=== PATIENT | male | born 1965 | race Hispanic/Latino ===

== ENCOUNTER 2022-03-23 05:42 | Inpatient (IN) | payer BC, SELFPAY ==
[2022-03-23] VITALS (16 sets, daily range): BP systolic 108–152; BP diastolic 76–99; PULSE 65–94; RESP 16–20; TEMP 36.4–36.8; O2SAT 78–100; BMI 32.8
[2022-03-23] MEDS: Lactated Ringers 1,000 ML 15 ML IV (06:05)
[2022-03-23 06:20] LABS: INR Fingerstick 0.9
[2022-03-23] MEDS: Gabapentin 600 MG Tablet PO (06:47)
--- NOTE | 2022-03-23 07:11 | DS.PCM_ITS ---
Providers Date of Admission: 03/23/22 Primary Care Physician: Dr. Sushil Mackey DO Reason For Visit: LUMBER 4-5 POSTERIOR LUMBAR INTERBODY FUSION Diagnosis Discharge Diagnosis (1) Lumbar stenosis: Status: Acute Code(s): M48.061 - Spinal stenosis, lumbar region without neurogenic claudication Medications at Discharge Home Medications gabapentin 300 mg tablet 300 mg PO BID PAIN 03/17/22 hydrocodone-acetaminophen 5-325mg 5mg-325mg 1 tab PO Q6H PRN pain 7 days #28 tabs 03/23/22 Hospital Course Operations - (L4-5 posterior lumbar interbody fusion, decompression, posterior spinal fusion with instrumentation, use of allograft) Summary of Care Provided Minutes Spent on Discharge: 15 Hospital Course: The patient is a 56-year-old male who underwent L4-5 posterior lumbar interbody fusion, decompression, posterior spinal fusion with instrumentation, use of allograft on 03/23/2022. He was subsequently admitted. The hospitalist was consulted for medical management. The patient progressed well. His pain was controlled and he was mobilizing well. No significant medical issues were reported. His drain was pulled on postoperative day 1. He was subsequently discharged home on 03/24/2022 to follow-up with Dr. Ambrosio in 3 weeks. Physical Exam Narrative The patient was seen and examined postoperative day 1. He is resting comfortably. His pain is controlled. He denies any acute numbness tingling weakness or changes in bowel or bladder function. Drain was pulled today Const alert, oriented x3 and no apparent distress General Appearance: cooperative, comfortable and well kempt Orientation / Consciousness: awake, oriented to person, oriented to place and oriented to time HEENT normocephalic and head/scalp atraumatic Eyes EOMs intact bilaterally and conjunctivae normal Neck full ROM General: normal visual inspection Chest inspection of chest normal and palpation of chest normal Resp normal respiratory effort and normal air movement Effort and Inspection: able to speak in complete sentences Cardio regular rate and peripheral pulses 2+ throughout GI soft to palpation, non-tender and non-distended Back/Spine Back/Spine Narrative: Dressing clean dry and intact. Incision well approximated with interrupted sutures in place. No tenderness erythema drainage or fluctuance Cervical Spine: cervical ROM normal Thoracic Spine / Upper Back: normal to inspection Lumbar Spine / Lower Back: normal to inspection Extremity normal to inspection, full ROM, normal capillary refill, no clubbing, cyanosis or edema and no calf tenderness Skin no rashes or lesions noted General Skin Exam: no breakdown Neuro oriented x3, CN's II-XII intact bilaterally, moves all extremities, no focal motor deficits, no sensory deficits noted and deep tendon reflexes 2+ bilaterally Motor Exam: strength 5/5 throughout and muscle tone normal throughout Weight / BMI Weight Weight: 229 lb 4.492 oz Body Mass Index (BMI) 32.8 ABG / Lab / Microbiology Data Result Diagrams: 03/24/22 06:18 03/24/22 06:18 Laboratory: Laboratory Results - last 24 hr 03/23/22 06:16: POC PT 12.0, INR 0.9 D/C Instructions Discharge Diet: No restrictions Additional Activity Instructions: No repetitive bending twisting or lifting greater than 5 pounds. Back brace on at all times. Okay to remove brace to sleep Call your doctor if your incision/area has: Continuous Slow Oozing, Sudden Increased Bleeding, Increased Pain/ Swelling, Increased Redness, Foul Smelling Discharge and Swelling at the incision site Call your doctor if you observe: Fever of 101 or Higher, Coldness, Increased Pain, Numbness or Tingling, Change in Color, Inability to urinate, Inability to have a bowel movement, Using more than 1 pad per hour, Shortness of breath, Dizziness, Fainting spells, Swelling in the ankles, Chest pain, Prolonged hiccupping, Increased palpitations (irregular heartbeat), Calf discomfort and Uncontrolled pain Cleanse incision/area with: Do not get Incision Wet and Keep Dressing Clean & Dry Additional Dressing/Incision Instructions: Change dressing daily with iodine to incision, gauze and tape. Bernice dressing to shower Please Follow Up With: Dick Ambrosio DO When: 3 weeks Meaningful Use Info Meaningful Use Diagnoses (Choose all that apply): None applicable Discharge Plan Admission Admit Date/Time: 03/23/22 05:42 Attending Provider: Dick Ambrosio Primary Care Provider: Sushil Mackey Consulting Providers: Carlito Pham Instructions Additional Instructions / Restrictions: 1. During your procedure, you received sedation through your IV. Please follow these instructions for the next 24 hours: Do not drive a motor vehicle, do not drink any alcoholic beverages, and do not sign any legal documents or make personal or business decisions. A responsible adult should stay with you at least 6 hours after the procedure. 2. Keep your surgical site/incision clean and the dressing dry and intact. Change dressing daily with iodine, gauze and tape. You may use an ice pack at the surgical site to reduce any swelling or discomfort. 3. Monitor the incision site for any signs or symptoms of infection. Watch for redness, excessive swelling or drainage, or continued pain at the incision site after 3 days. Contact your physician immediately for a fever, chills or a temperature of 101.5? F or greater. 4. Take your medication exactly as prescribed by your physician. Do not attempt to wean yourself off any of your medications even though your pain is improving. This process needs to be carefully monitored by your doctor. Take any antibiotics prescribed exactly as directed and until they are gone. 5. Avoid stretching, bending, pulling, twisting or any sudden movements. Do not bend or twist at the waist. Wear your back brace at all times while out of bed. Okay to remove brace to sleep 6. No lifting greater than 5 pounds. 7. Do not operate a motor vehicle, equipment or a power tool while taking pain medication 8. Do not have any manipulation done by a chiropractor or any other physician without first consulting with the surgeon 9. Please contact our office if you are even scheduled for a CT scan or an MRI. 10. Please call us if you have any questions, problems or concerns. Discharge Orders/Prescriptions Prescriptions: New hydrocodone-acetaminophen 5-325 mg tablet 1 tab PO Q6H PRN (Reason: pain) 7 Days Qty: 28 0RF Continued gabapentin 300 mg Tablet 300 mg PO BID Other Ambulatory Orders: Partial Thromboplast Time (Routine) Timeframe: [id number] Facility: [facility] - Location: Laboratory Ordered By: Dr. Dick Ambrosio Prothrombin Time w/INR (Routine) Timeframe: [id number] Facility: [facility] - Location: Laboratory Ordered By: Dr. Dick Ambrosio Referrals / Follow Up: Sushil Mackey DO [Primary Care Provider] - Dick Ambrosio DO [STAFF PHYSICIAN] - Disposition Disposition (needs filled in before D/C Order can be placed): Home, Self Care
--- NOTE | 2022-03-23 07:11 | OP.PCM_ITS ---
Problems Associated Problem List Diagnoses (1) Lumbar stenosis: Report of Operation Date of Procedure: 03/23/22 Pre-Operative Diagnosis: 1. Lumbar stenosis, L4-5 with spondylosis 2. Lumbar degenerative disc disease, L4-5 Post-Operative Diagnosis: 1. Lumbar stenosis, L4-5 with spondylosis 2. Lumbar degenerative disc disease, L4-5 Surgery/Procedure Performed:: 1. L4-5 posterior lumbar interbody fusion 2. Insertion of intervertebral biomechanical device x1 3. Structural allograft for spinal fusion 4. L4 bilateral laminectomies, foraminotomies, facetectomies, decompression of bilateral nerve roots 5. L4-5 posterior lateral fusion 6. Pedicle screw fixation 7. Local autograft for spinal fusion 8. Neuro monitoring bilateral upper and bilateral lower extremities Description of Surgical Findings:: The patient is a 56-year-old male with intractable back and leg pain. Image studies confirm the above diagnoses. He has failed conservative treatment to include medication, physical therapy and injections. The patient opted for operative intervention understanding the risk to include but not limited to infection, bleeding, damage to nerves arteries and veins, possibility of spinal fluid leak, nonunion, hardware failure, continued pain, need for further surgery, deep vein thrombosis, pulmonary embolism, heart attack, risk of stroke or . The patient was identified in the preoperative holding area. There he received preoperative IV antibiotics, Ancef, and was then transferred to the operative suite. Once in the operative suite after general endotracheal anesthesia was established, the patient was transferred to the [place] operating table in the prone position. All bony prominences were padded accordingly. The lumbar spine was prepped and draped in a standard surgical fashion. Bear hugger's were not turned on until the drapes were placed and sealed with Ioban. A midline incision was made and taken down to the level of the lumbodorsal fascia. The fascia was divided and subperiosteal dissection was taken down to the level of the transverse processes of L4 and L5 bilaterally. Deep retractors were placed. A bone scalpel was then used to make cuts in the lamina of L4. A series of rongeurs and Kerrisons was used removing the spinous process and lamina at L4. Then facetectomies of greater than 50% were performed as well as foraminotomies, decompressing the bilateral nerve roots. Given the severity of the stenosis I needed to perform wide bilateral laminectomies and near complete facetectomies in order to decompress the neural elements therefore creating instability necessitating the fusion. The dura and nerve roots were identified and retracted medially. A 15 blade scalpel was used to make an annulotomy at L4-5 on the left. An endplate elevator, curettes and pituitaries were utilized to remove disc material. The endplates were then prepared with a rasp. An appropriate sized intervertebral peek cage device measuring 7 mm was packed with morselized cancellous allograft and impacted into position completing the posterior lumbar interbody fusion at the L4-5 level. I then proceeded with pedicle screw fixation. Starting points were found at the junction of the superior articular process and transverse process of L4 and L5 bilaterally. A power bur was used for the starting points. Pedicle probes were placed bila terally and then 6.5 x 50 mm screws were placed bilaterally at L4 and 6.5 x 50 mm screws were placed bilaterally at L5. The screws were tested with intraoperative neurophysiologic monitoring and tested within normal limits. Connecting rods were then applied and secured with set screws. I then proceeded with the posterior lateral fusion. This was accomplished by decorticating the transverse processes bilaterally at L4 and L5. This decorticated bone was then bridged with local autograft from the decompression as well as morselized cancellous allograft therefore completing the posterior lateral fusion at L4-5. The incision was then thoroughly irrigated. Tisseel was placed over the dura as a hemostatic agent. A deep drain was placed. The fascia was closed with #1 Vicryl, subcutaneous with 2-0 Vicryl and skin with 2-0 nylon. A sterile dressing was applied with 4 x 4's ABD and tape. Sponge instrument and needle counts were correct at the end of the case. The patient was extubated and taken to the PACU without incident. Buffy Byrd PA-C was present during the entire duration of the case and necessary for critical parts of the case including retraction and closure. Surgeon: Dick Ambrosio quality management nurse: Buffy Byrd Type of Anesthesia: General Drains: Hemovac Estimated Blood Loss (mL): 400 cc Fluids Replaced: 1500 cc Grafts/Implants Used: Unified spine, Talos, Vitae OS, DBM Complications None Admit VTE Documentation VTE Present on Admission: No
--- NOTE | 2022-03-23 07:11 | PCM.PN.ORT ---
Subjective Subjective The patient was seen and examined postoperatively in the PACU. He is lying in bed resting comfortably. His pain is controlled. He denies any complaints including numbness tingling weakness. Objective Data Objective Data Vital Signs: Vital Signs Temp Pulse Resp BP Pulse Ox 97.6 F L 65 16 123/89 H 100 03/23/22 06:38 03/23/22 06:38 03/23/22 06:38 03/23/22 06:38 03/23/22 06:38 Oxygen Delivery Method Room Air Weight: 229 lb 4.492 oz Body Mass Index (BMI) 32.8 Lab / Micro Data Labs: Laboratory Results - last 24 hr 03/23/22 06:16: POC PT 12.0, INR 0.9 Physical Exam Const alert, oriented x3 and no apparent distress General Appearance: cooperative and comfortable Orientation / Consciousness: awake, oriented to person and oriented to place HEENT normocephalic and head/scalp atraumatic Eyes EOMs intact bilaterally and conjunctivae normal Neck full ROM General: normal visual inspection Chest inspection of chest normal and palpation of chest normal Resp normal respiratory effort and normal air movement Cardio regular rate, regular rhythm and peripheral pulses 2+ throughout GI soft to palpation, non-tender and non-distended Back/Spine Back/Spine Narrative: Dressing clean dry and intact. Drain in place and functioning with small amount of serosanguineous fluid present in the drain Cervical Spine: cervical ROM normal Thoracic Spine / Upper Back: normal to inspection Lumbar Spine / Lower Back: normal to inspection Extremity normal to inspection, full ROM, normal capillary refill, no clubbing, cyanosis or edema and no calf tenderness Skin no rashes or lesions noted General Skin Exam: no breakdown Neuro oriented x3, CN's II-XII intact bilaterally, moves all extremities, no focal motor deficits, no sensory deficits noted and deep tendon reflexes 2+ bilaterally Motor Exam: strength 5/5 throughout and muscle tone normal throughout Assessment & Plan Assessment/Plan (1) Lumbar stenosis: PLAN: Okay to admit to floor See orders Pain control and mobilization as tolerated. Back brace on at all times Continue antibiotics while drain in place Discharge planning, likely home tomorrow
--- NOTE | 2022-03-23 07:15 | RAD_ITS ---
STUDY: X-RAY - LUMBAR SPINE REASON FOR EXAM: Male, 56 years old. L4-5 FUSION TECHNIQUE: 3 view(s) of the lumbar spine were obtained. COMPARISON: None FINDINGS: Intraoperative imaging provided for L4-L5 interpedicular screw fixation. RAD/Spine 1 View Any Level IMPRESSION: Intraoperative imaging provided for L4-L5 interpedicular screw fixation. Electronically Signed: Papi Hernandez MD at 13:24 EDT ,
[2022-03-23] MEDS: Cefazolin 2 GM in 0.9% Normal Saline 100 ML IV (07:40)
[2022-03-23] MEDS: Heparin 10,000 UNITS/10 ML Vial 10000 UNITS (08:36)
[2022-03-23] MEDS: THROMBIN (RECOMBINANT) 20,000 UNIT VIAL 20000 UNIT TOPICAL (08:36)
[2022-03-23] MEDS: Bupivacaine Mpf 0.5% 30 ML VIAL (12:24)
--- NOTE | 2022-03-23 13:35 | PN.HOSP_ITS ---
Documented by User: Ashtyn Murphy NP-Marielle 03/23/22 13:43 Subjective Subjective Patient seen and examined. Patient laying in bed in PACU, reports pain /, nurse at bedside with pain medication. Objective Data Objective Data Vital Signs: Vital Signs Temp Pulse Resp BP Pulse Ox 97.6 F L 77 16 146/81 H 99 03/23/22 12:52 03/23/22 12:52 03/23/22 12:52 03/23/22 12:52 03/23/22 12:52 Oxygen Delivery Method Room Air Weight: 229 lb 4.492 oz Body Mass Index (BMI) 32.8 Intake & Output: Intake and Output for Last 24 Hours 03/21/22 03/22/22 03/23/22 23:59 23:59 23:59 Intake Total 110 / 110 Output Total 300 / 300 Balance -190 / -190 Lab / Micro Data Labs: Laboratory Results - last 24 hr 03/23/22 06:16: POC PT 12.0, INR 0.9 Radiography Diagnostic Testing: Radiology Impression Spine X-Ray 03/23/22 07:15 IMPRESSION: Intraoperative imaging provided for L4-L5 interpedicular screw fixation. Electronically Signed: Papi Hernandez MD at 13:24 EDT , Physical Exam Const alert, oriented x3 and no apparent distress HEENT head/scalp atraumatic and moist oral mucous membranes Head and Scalp: normocephalic Eyes conjunctivae normal and no scleral icterus Neck no lymphadenopathy and supple General: trachea midline Resp normal respiratory effort and clear to auscultation bilaterally Cardio regular rate, regular rhythm, S1 normal heart sound and S2 normal heart sound GI normal to inspection, nondistended, normoactive bowel sounds, soft to palpation and non-tender Extremity normal to inspection and no clubbing, cyanosis or edema Skin no rashes or lesions noted and skin turgor normal Neuro oriented x3, moves all extremities, no focal motor deficits and no sensory deficits noted Sensorium / Orientation: awake and alert Speech: speech normal Psych affect normal Assessment & Plan Assessment/Plan (1) Lumbar stenosis: (2) Migraine headache: PLAN: Plan 1. Lumbar stenosis -Continue pain management regimen per orthopedics -Continue gabapentin -PT following -Continue postop cefazolin 2. Migraine headaches -Patient has a history however not currently on medication regimen DVT prophylaxis-SCDs and TOSHA morrison This patient was seen by Ashtyn Murphy, SUPERINTENDENT MEASUREMENT-C under the supervision of Dr. Pham. 10 minutes spent in clinical coordination of patient's plan of care. Documented by User: Dr. Carlito Pham, 03/23/22 19:24 Assessment & Plan Assessment/Plan (1) Lumbar stenosis: (2) Migraine headache: Charges/Coding Addendum Addendum: Patient was seen and examined independently of Adela Murphy, he was seen in PACU following surgery for lumbar stenosis. Patient speaks very little Croatian, he does not appear to be in any distress at this time. He does state yes or no to certain questions. On examination he appeared in good health and spirits. Vital signs as documented. Skin warm and dry and without overt rashes. Neck without JVD, neck was supple, trachea midline, thyroid was normal. Lungs clear bilaterally, normal air movement was noted. Heart exam notable for regular rhythm, normal sounds and absence of murmurs, rubs or gallops. Abdomen unremarkable and without evidence of organomegaly, masses, or abdominal aortic enlargement. Bowel sounds are present, abdomen is not distended. Extremities nonedematous, no cyanosis was noted, no clubbing was noted. Neuro: Cranial nerves II through XII are grossly intact, no focal motor deficits were noted, sensation to light touch and pinprick intact, motor exam 5/5 throughout. Psych: Patient is alert and oriented x3, he does not appear anxious or depressed, he does not appear agitated. Impression: #1 lumbar spinal stenosis L4-5 with spondylosis-status post L4-5 posterior lumbar interbody fusion with insertion of intervertebral biomechanical device-postop day 0-patient will be seen by PT and OT, orthopedic surgery is participating in his care #2 lumbar degenerative disc disease [id number] will be seen by PT and OT #3 chronic migraine headaches-patient does not take any prescription medication for migraines at this time. I have reviewed Adela Murphy's progress note including her medical assessment and plan of care and with the above additions endorse it. Total clinical time spent by myself addressing the patient's medical issues, reviewing the data, and collaborating with the patient's care team: 15-minutes Visit Charges Inpatient E&M: 46211 Subs Hosp L2
--- NOTE | 2022-03-23 15:21 | NURSING ---
awaiting obgyn specialist machine from ER
[2022-03-23] MEDS: Ensure Surgery 237 ML LIQUID PO (15:53)
[2022-03-23] MEDS: Acetaminophen 500 MG Tablet 1000 MG PO ×2 (15:53→21:27)
[2022-03-23] MEDS: Cefazolin 1 GM/50 ML BAG IV ×2 (15:53→23:12)
--- NOTE | 2022-03-23 18:57 | NURSING ---
pt c/o of some tightness in his left leg from thigh to toes- repositioned and pt states they helped.
[2022-03-23] MEDS: Gabapentin 300 MG Capsule PO (21:27)
[2022-03-23] MEDS: 0.9% Saline Lock 10 ML Syringe IV (21:28)
[2022-03-24] MEDS: oxyCODONE 5 MG Tablet PO ×2 (00:09→10:59)
[2022-03-24 01:59] VITALS: PULSE 79
[2022-03-24] MEDS: Lactated Ringers 1,000 ML 15 ML IV (02:00)
[2022-03-24 02:43] VITALS: BP 107/57; PULSE 71; RESP 18; TEMP 36.7; O2SAT 94
[2022-03-24 05:58] VITALS: BP 113/65; PULSE 66; RESP 18; TEMP 36.6; O2SAT 92
[2022-03-24] MEDS: Acetaminophen 500 MG Tablet 1000 MG PO ×2 (06:05→15:43)
[2022-03-24 06:27] LABS: Absolute Lymphocyte Count 1.69 X10^3/uL (0.83-4.51); Absolute Neutrophil Count 14.9 X10^3/uL (2.0-7.7); Basophil# 0.02 X10^3/uL; Basophil% 0.1 % (0-1); Eosinophil# 0.01 X10^3/uL; Eosinophils% 0.1 % (0-5); Hematocrit 43.5 % (40-54); Hemoglobin 14.7 g/dL (13.0-16.5); Lymphocyte # 1.69 X10^3/ul (0.83-4.51); Lymphocyte % 9.4 % (19-41); Mean Corp Hgb Conc 33.8 g/dL (32-36); Mean Corpuscular Volume 82.9 fL (80-94); Mean Platelet Vol. 9.9 fl (6.2-12.0); Monocyte# 1.22 X10^3/uL; Monocyte% 6.8 % (0-10); NRBC Flagged by Analyzer 0 % (0-5); Neutrophil # 14.94 X10^3/uL (2.7-7.7); Neutrophil % 82.9 % (47-70); Platelet Count 216 K/mm3 (150-450); RBC Distribution Width CV 13.3 % (11.6-14.6); Red Blood Count 5.25 M/mm3 (4.6-6.2)
[2022-03-24 06:59] LABS: AST(SGOT) 21 U/L (15-37); Alanine Aminotransfer ALT/SGPT 27 U/L (16-61); Albumin, Serum 2.9 g/dL (3.2-5.0); Alkaline Phosphatase 70 U/L (45-117); Anion Gap 5 (5-15); BUN 15 mg/dL (7-18); BUN/Creat Ratio 17.2 RATIO (10-20); Calcium,Total 8.4 mg/dL (8.5-10.1); Chloride 109 mmol/L (98-107); Creatinine, Serum 0.87 mg/dL (0.70-1.30); EST Glomerular Filtration Rate 96 mL/min (>60); Est Glom Filt Rate - Afr Amer 116 mL/min (>60); Estimated Creatinine Clearance 97.89 ml/min; Globulin 2.8 g/dL (2.2-4.2); Glucose 165 mg/dL (74-106); Protein, Total 5.7 g/dL (6.4-8.2); Sodium Level 138 mmol/L (136-145)
[2022-03-24 07:01] VITALS: PULSE 61
--- NOTE | 2022-03-24 10:45 | CASEMGMT ---
RN CM GAS PUMPER CM to room to meet with patient for initial transition planning/care coordination assessment. RN CM introduced self and role at [facility].? Pt voices understanding and consents to assessment at this time.? Pt resting in bed in no distress at this time.? and dtr @ bedside. Pt is A/O. Pt's primary language is [place], but voices able to understand most CM questions and able to answer questions appropriately. If pt unable to understand, CM would re-word questions so pt could understand. Care providers, pharmacy, and demographics verified/updated at this time. PCP: Dr Sushil Corbin Specialists: Dr Ambrosio--ortho Preferred Pharmacy: [facility] Retail Insurance: Melia Prescription Benefit: yes? LNOK: , [place]. Living Arrangements: Lives w/, dtr, and son in 2-story home. Full bath on 2nd floor. 1/2 bath on main floor. Bedroom is upstairs. Pt states has a sofa he can sleep on main floor, if needed and he has recently purchased a recliner chair. Pt independent w/ADL's prior to surgery. able to assist. does home mgmt tasks. Transportation:?Pt states drives self and states no transportation concerns at this time.? also drives. DME: Pt has no DME and states would like to get a walker. Provided w/list of local DME co's. Pt states [employer]. HHC/SNF: No hx of either. No needs identified. Pt wishes to return home and states has no concerns with going home at time of discharge.? CM to follow for any further discharge planning/needs.? Pt voices no further concerns/needs at this time.? Advised pt to ask for CM if any further questions/concerns/needs arise.? Voices understanding. PLAN:??Home. Fadi THORNE RN, CM
[2022-03-24 10:58] VITALS: BP 128/70; PULSE 70; RESP 18; TEMP 36.6; O2SAT 94
[2022-03-24] MEDS: Gabapentin 300 MG Capsule PO (10:59)
--- NOTE | 2022-03-24 11:13 | CASEMGMT ---
Addendum entered by Kandis Billy 03/24/22 13:49: Received tc from Evelyn at [facility] for FWW, states to take FWW from stock. Paperwork signed and faxed to [facility] after given to patient. Addendum entered by Kandis Billy 03/24/22 12:08: Received faxed FWW script back signed. Faxed to [facility] at this time for delivery to room. TC to [facility], received corporate only. Original Note: Faxed rx for FWW to office for signature.
== END 2022-03-24 16:30 | disposition home or self-care (01) | DRG 460 ==
LOC: ACINP 10:34 → MS3 11:13
PROVIDERS: Nurse Practitioner Family; Admitting Provider Orthopaedic Surgery; PCP Family Medicine; Referring Provider Orthopaedic Surgery; Visit Provider Orthopaedic Surgery
PROC: 0SG00AJ Fusion of Lumbar Vertebral Joint with Interbody Fusion Device, Posterior Approach, Anterior Column, Open Approach (ICD-10-PCS; CPT 22630; principal; 2022-03-23 07:00)
DX: M48.061 Spinal stenosis, lumbar region without neurogenic claudication (principal); E66.3 Overweight; M47.816 Spondylosis without myelopathy or radiculopathy, lumbar region; M51.36 Other intervertebral disc degeneration, lumbar region; G89.29 Other chronic pain; Z68.33 Body mass index [BMI] 33.0-33.9, adult
CPT/HCPCS: 36415; 36416; 72020; 76000; 80053; 85025; 85610; 97161; 99251; C1713; J7120; A4216; G0463; J2405

== ENCOUNTER → 2022-07-10 | Outpatient (CLI) | payer BC, SELFPAY ==
--- NOTE | 2022-07-10 14:25 | NEURO ---
NCS and/or EMG Patient Report Ordering Doctor: Dick Ambrosio DATE OF SERVICE: 07/10/22 Indication: Left lower extremity burning pain and tightness following lumbar surgery in March 2022. Since the procedure, however, his back discomfort has largely improved. Evaluate for lumbosacral radiculopathy. Findings: Nerve conduction studies were performed in the left lower extremity. Some comparison studies were performed on the right. The left peroneal motor study recording the extensor digitorum brevis showed a normal amplitude, slightly prolonged distal latency and normal conduction velocity. No conduction block or focal slowing was present across the fibular neck. The left tibial motor study recording the abductor hallucis brevis showed a normal amplitude, prolonged distal latency and normal conduction velocity. The left sural sensory response showed a normal amplitude and conduction velocity. The left superficial peroneal sensory response showed a normal amplitude and conduction velocity. The left medial plantar response was absent. The right tibial motor study recording the abductor hallucis brevis showed a symmetric amplitude and prolonged distal latency when compared to the left. Needle EMG of the left lower extremity muscles was performed. The lumbar paraspinal muscles were not sampled due to recent lumbar surgery. Active denervation was present in the tibialis anterior, extensor hallucis longus, medial gastrocnemius and tensor fascia latae muscles. The tibialis anterior was mildly polyphasic, but otherwise unremarkable. The tensor fascia latae was polyphasic with slightly reduced recruitment. The vastus medialis was normal. Impression: This is an abnormal study. There is electrophysiologic evidence of an active L5 radiculopathy. The polyphasic motor units seen in the tensor fascia latae are suggestive of early reinnervation to this muscle and consistent with the expected time course of axonal regrowth. The prolonged tibial motor latencies on both sides are of unclear significance and likely incidental given the patient's complaints. If he were to develop symptoms of tarsal tunnel syndrome in the future, an ultrasound of the region could be considered for evaluation of local impingement. Rickey Loyola D.O. Multi Select Codes Neurology Neurology Interp Codes: 88460-39 Musc test done w/n test comp (interp) and 67203-99 Nrv cndj tst 5-6 studies (interp)
== END | disposition home or self-care (01) ==
LOC: PSN 12:08
PROVIDERS: PCP Family Medicine; Visit Provider Orthopaedic Surgery
DX: M48.061 Spinal stenosis, lumbar region without neurogenic claudication (principal); M47.26 Other spondylosis with radiculopathy, lumbar region
CPT/HCPCS: 95886; 95909

== ENCOUNTER → 2025-01-22 | Outpatient (CLI) | payer BC, SELFPAY ==
--- NOTE | 2025-01-22 12:03 | MRI_ITS ---
PROCEDURE: SPINE LUMBAR W/WO CONTRAST 01/22/2025 REASON FOR EXAM: PAIN, severe radiculopathy after previous surgery TECHNIQUE: Multiplanar and multisequence images were obtained without and with intravenous gadolinium-based contrast administration. CONTRAST: Clariscan IV COMPARISON: None FINDINGS: Vertebrae: Lumbar vertebral body heights are preserved. L4, L5, and S1 laminectomies. Alignment: Normal. No spondylolisthesis. Conus Medullaris: Terminates at T12-L1 L1-2: Mild disk bulge. L2-3: Mild disk bulge. L3-4: Mild disk bulge. L4-5: Susceptibility artifact from L4-5 instrumented fusion. L5-S1: Unremarkable Sacrum: Visualized upper sacrum and SI joints are unremarkable. Postcontrast images: Inferior thecal sac enhancement. MRI/Spine Lumbar W/WO Contrast IMPRESSION: Mild inferior thecal sac enhancement may be postoperative. Otherwise uncomplicated appearance of L4-5 laminectomies and posterior instrume nted fusion. Reading Location: [facility]
--- NOTE | 2025-01-22 12:03 | MRI_ITS ---
EXAM: Noncontrast MRI of the left tibia/fibula. CLINICAL HISTORY: Left lower extremity pain since lumbar spine surgery 2021 COMPARISON: None available TECHNIQUE: Multi planar, multisequence MRI images of the left tibia/fibula were obtained without IV contrast. FINDINGS: The included portions of the right tibia/fibula and soft tissues are grossly unremarkable. No acute fracture or abnormal marrow replacement process of the left tibia/fibula. The included portions of the left knee and ankle are intact. There is no discrete soft tissue mass or drainable fluid collection of the left tibia/fibula on the provided noncontrast images. No gross inflammatory changes in the soft tissues or subcutaneous fat of the left tibia/fibula region. MRI/Lower Ext/No Jt/w/o IMPRESSION: No acute bony abnormality of the left tibia/fibula. No focal soft tissue abnormality of the left tibia/fibula region. Reading Location: [id number]
== END | disposition home or self-care (01) ==
PROVIDERS: PCP Nurse Practitioner Adult Health; Referring Provider Orthopaedic Surgery Orthopaedic Surgery of the Spine; Visit Provider Orthopaedic Surgery Orthopaedic Surgery of the Spine
DX: M54.50 Low back pain, unspecified (principal); M79.622 Pain in left upper arm
CPT/HCPCS: 72158; 73718; A9575